=== PATIENT | female | born 1990 | race Two or more races ===

== ENCOUNTER 2023-08-14 08:09 | Outpatient (CLI) | payer OTHER | END 2023-08-14 08:10 | disposition home or self-care (01) | LOC: PRENATAL 08:09 | PROVIDERS: ATTEND Obstetrics & Gynecology Maternal & Fetal Medicine | DX: O36.80X0 Pregnancy with inconclusive fetal viability, not applicable or unspecified (principal); Z36.82 Encounter for antenatal screening for nuchal translucency; O34.219 Maternal care for unspecified type scar from previous cesarean delivery; Z36.9 Encounter for antenatal screening, unspecified; O99.891 Other specified diseases and conditions complicating pregnancy; Z3A.12 12 weeks gestation of pregnancy ==

== ENCOUNTER 2023-10-02 08:04 | Outpatient (CLI) | payer OTHER | END 2023-10-02 08:06 | disposition home or self-care (01) | LOC: PRENATAL 08:04 | PROVIDERS: ATTEND Obstetrics & Gynecology Maternal & Fetal Medicine | DX: O35.3XX0 Maternal care for (suspected) damage to fetus from viral disease in mother, not applicable or unspecified (principal); O44.00 Complete placenta previa NOS or without hemorrhage, unspecified trimester; O34.219 Maternal care for unspecified type scar from previous cesarean delivery; O99.891 Other specified diseases and conditions complicating pregnancy; Z3A.19 19 weeks gestation of pregnancy ==